=== PATIENT | female | born 1990 | race Caucasian/White ===

== ENCOUNTER 2018-11-23 00:37 | Emergency (ER) | payer BC ==
[~2018-11-23] VITALS: Ht 152.4 cm; Wt 68.2 kg
[2018-11-23 02:45] VITALS: BP 113/73
== END 2018-11-23 03:00 | disposition home or self-care (01) ==
LOC: EMS 00:44
DX: R07.9 Chest pain, unspecified (principal)
CPT/HCPCS: 93005

== ENCOUNTER 2022-09-18 02:02 | Emergency (ER) | payer BC ==
[~2022-09-18] VITALS: Ht 152.4 cm; Wt 75.0 kg
[2022-09-18 02:32] LABS: COVID AG,FIA SOURCE NASAL SWAB
[2022-09-18 02:50] LABS: INFLUENZA TYPE A NEGATIVE FOR TYPE A (NEGATIVE); INFLUENZA TYPE B NEGATIVE FOR TYPE B (NEGATIVE)
[2022-09-18 02:51] LABS: RAPID GROUP A STREP NEGATIVE (NEGATIVE)
[2022-09-18] MEDS ORDERED: LIDOCAINE/PF 1% 2 ML VIAL IM ONE (03:15)
[2022-09-18] MEDS ORDERED: CefTRIAXone SODIUM 1 GM/VIAL IM ONE (03:15)
[2022-09-18] MEDS ORDERED: DEXAMETHASONE 4 MG TABLET PO ONE (03:15)
[2022-09-18] MEDS ORDERED: IBUPROFEN 600 MG TABLET PO ONE (03:15)
[2022-09-18 04:03] VITALS: BP 120/78
== END 2022-09-18 04:07 | disposition home or self-care (01) ==
LOC: EMS 02:04
DX: J03.90 Acute tonsillitis, unspecified (principal); Z20.822 Contact with and (suspected) exposure to COVID-19
CPT/HCPCS: 99284; 87426; 87430; 87804; 93005; 96372; J0696; J8540; J3490